=== PATIENT | female | born 1965 | race Caucasian/White ===

== ENCOUNTER 2016-12-02 10:34 | Emergency (ER) | payer MEDICAID ==
[~2016-12-02] VITALS: Ht 167.6 cm; Wt 100.0 kg
[~2016-12-02 10:34] MED LIST: ATOR10TA PO; NAPR-681 PO; POLY17PO3 PO; TRAM50TA3 PO
[2016-12-02 11:47] VITALS: BP 126/81
== END 2016-12-02 12:02 | disposition home or self-care (01) ==
LOC: ER 11:52
DX: B37.3 Candidiasis of vulva and vagina (principal); Z79.899 Other long term (current) drug therapy; Z90.49 Acquired absence of other specified parts of digestive tract; Z90.710 Acquired absence of both cervix and uterus
CPT/HCPCS: 99283; Z7610

== ENCOUNTER 2018-12-10 14:59 | Inpatient (IN) | payer MEDICAID ==
[~2018-12-10] VITALS: Ht 167.6 cm; Wt 99.3 kg
[2018-12-10 16:41] LABS: BASOPHILS % 0.9 % (0.0-2.0); HEMOGLOBIN. 15.3 g/dL (12.0-16.0); LYMPHOCYTES % 23.4 % (20.0-50.0); MEAN CORPUSCULAR HEMOGLOBIN 30.9 pg (28.0-32.0); MEAN CORPUSCULAR VOLUME 90.9 fL (81.0-99.0); MEAN PLATELET VOLUME 9.2 fl (7.4-10.4); MONOCYTES % 9.6 % (2.0-8.0); NEUTROPHILS % 65.1 % (40.0-76.0); PLATELET 199 x1000/uL (130-400); RED BLOOD CELL COUNT 4.96 mill/uL (4.2-5.4); RED CELL DISTRIBUTION WIDTH 14.1 % (11.6-14.6)
[2018-12-10 16:45] LABS: PROTHROMBIN TIME 10.4 sec (9.6-11.0)
[2018-12-10 16:48] LABS: CHLORIDE 104 mEq/L (98-107)
[2018-12-10 16:52] LABS: ETHANOL BLOOD < 10 mg/dL
[2018-12-10 16:55] LABS: LDL CHOLESTEROL 104 mg/dL (5-100)
[2018-12-10 17:59] LABS: CLARITY URINE CLEAR (CLEAR); COLOR URINE YELLOW (YELLOW); KETONES URINE TRACE (NEGATIVE); LEUKOCYTE ESTERASE URINE NEGATIVE (NEGATIVE); NITRITE URINE NEGATIVE (NEGATIVE); OCCULT BLOOD URINE NEGATIVE (NEGATIVE); PH URINE 5.5 (4.5-8.0); PROTEIN URINE NEGATIVE (NEGATIVE)
[2018-12-10 18:14] LABS: *AMPHETAMINES SCREEN URINE NEGATIVE (NEGATIVE); *BARBITURATES SCREEN URINE NEGATIVE (NEGATIVE); *BENZODIAZEPINES SCREEN URINE NEGATIVE (NEGATIVE); *COCAINE SCREEN URINE NEGATIVE (NEGATIVE); METHADONE URINE SCREEN NEGATIVE (NEGATIVE); OPIATES URINE SCREEN NEGATIVE (NEGATIVE)
[2018-12-10 18:15] LABS: CANNABINOID URINE SCREEN PRESUMTIVE POSITIVE (NEGATIVE); PHENCYCLIDINE URINE SCREEN NEGATIVE (NEGATIVE)
[2018-12-10] MEDS ORDERED: IOHEXOL-350 100 ML BOTTLE ONE (18:35)
[2018-12-11] VITALS (7 sets, daily range): BP systolic 100–144; BP diastolic 51–75
[2018-12-11] MEDS ORDERED: DEXTROSE 50% WATER 50ML SYRINGE IV PRN
[2018-12-11] MEDS ORDERED: CITA10TA16 MT (02:17)
[2018-12-11] MEDS ORDERED: HYDR-3782 GT (02:17)
[2018-12-11] MEDS ORDERED: METF-414 MT (02:17)
[2018-12-11] MEDS: METFORMIN HCL 500MG TABLET PO SCH ×2 (06:21→17:43)
[2018-12-11] MEDS: BLOOD SUGAR DIAGNOSTIC STRIP TEST SCH ×4 (06:28→21:00)
[2018-12-11] MEDS: INSULIN LISPRO 100 UNITS/ML SUBCUT SCH ×4 (06:28→21:00)
[2018-12-11] MEDS: ONDANSETRON HCL 4MG/2ML INJ IV PRN ×3 (06:55→22:16)
[2018-12-11] MEDS: CITALOPRAM HYDROBROMIDE 20MG TABLET PO SCH (09:00)
[2018-12-11] MEDS: ENOXAPARIN 30MG/0.3ML SYR SUBCUT SCH ×2 (09:00→21:00)
[2018-12-11] MEDS ORDERED: ASPIRIN 325MG EC TABLET PO SCH (09:00)
[2018-12-11 09:58] LABS: T4 FREE 1.2 ng/dL (0.76-1.46)
[2018-12-11] MEDS ORDERED: INSULIN GLARGINE UD 100 UNITS/ML SYR SUBCUT SCH (10:00)
[2018-12-11 11:18] LABS: FOLIC ACID (FOLATE) SERUM 15.7 ng/mL (>5.38)
[2018-12-11 12:26] LABS: HEPATITIS B SURFACE ANTIGEN NEGATIVE
[2018-12-11 12:54] LABS: HEPATITIS A AB IGM NEGATIVE (NEGATIVE)
[2018-12-11] MEDS: METOCLOPRAMIDE HCL 10MG/2ML VIAL IV SCH (16:54)
[2018-12-11] MEDS: ATORVASTATIN CALCIUM 40MG TABLET PO SCH (21:00)
[2018-12-11] MEDS: INSULIN GLARGINE UD 100 UNITS/ML SYR SUBCUT SCH (22:00)
[2018-12-12] VITALS: BP 134/85
[2018-12-12] MEDS: METOCLOPRAMIDE HCL 10MG/2ML VIAL IV SCH ×4 (01:40→18:21)
[2018-12-12] MEDS: DEXT 5%/0.45% NACL KCL 20MEQ/L 1,000 ML IV SCH ×2 (02:48→10:00)
[2018-12-12 04:00] VITALS: BP 127/68
[2018-12-12 06:04] LABS: BASOPHILS % 0.3 % (0.0-2.0); EOSINOPHILS % 0.1 % (0.0-5.0); HEMATOCRIT. 47.2 % (36.0-48.0); HEMOGLOBIN. 15.8 g/dL (12.0-16.0); MEAN CORPUSCULAR HEMOGLOBIN 30.6 pg (28.0-32.0); MEAN CORPUSCULAR VOLUME 91.5 fL (81.0-99.0); MEAN PLATELET VOLUME 10.3 fl (7.4-10.4); MONOCYTES % 5.3 % (2.0-8.0); NEUTROPHILS % 84.3 % (40.0-76.0); PLATELET 167 x1000/uL (130-400); RED BLOOD CELL COUNT 5.16 mill/uL (4.2-5.4); RED CELL DISTRIBUTION WIDTH 14.1 % (11.6-14.6)
[2018-12-12 06:21] LABS: CHLORIDE 101 mEq/L (98-107)
[2018-12-12] MEDS: METFORMIN HCL 500MG TABLET PO SCH ×2 (06:48→18:00)
[2018-12-12] MEDS: BLOOD SUGAR DIAGNOSTIC STRIP TEST SCH ×4 (06:59→20:57)
[2018-12-12] MEDS: INSULIN LISPRO 100 UNITS/ML SUBCUT SCH ×4 (07:11→21:10)
[2018-12-12 08:00] VITALS: BP 149/86
[2018-12-12] MEDS: CITALOPRAM HYDROBROMIDE 20MG TABLET PO SCH (10:02)
[2018-12-12] MEDS: CLOPIDOGREL 75MG TABLET PO SCH (10:02)
[2018-12-12] MEDS: INSULIN GLARGINE UD 100 UNITS/ML SYR SUBCUT SCH ×2 (10:03→21:11)
[2018-12-12] MEDS: ENOXAPARIN 30MG/0.3ML SYR SUBCUT SCH ×2 (10:04→20:57)
[2018-12-12 12:00] VITALS: BP 137/75
[2018-12-12] MEDS ORDERED: LIDOCAINE HCL 1% 20ML VIAL (Pyxis) INJ ONE (14:27)
[2018-12-12] MEDS ORDERED: SODIUM BICARBONATE 4% (2.4MEQ) 5ML VIAL IV ONE (14:27)
[2018-12-12] MEDS ORDERED: ONDANSETRON HCL 4MG/2ML INJ IM PRN (14:30)
[2018-12-12] MEDS: ONDANSETRON HCL 4MG/2ML INJ IV PRN (15:53)
[2018-12-12 16:00] VITALS: BP 119/76
[2018-12-12] MEDS: HYDROCODONE/ACETAMINOPHEN 5/325MG TABLET PO PRN ×2 (18:21→20:56)
[2018-12-12 20:00] VITALS: BP 152/79
[2018-12-12] MEDS: ATORVASTATIN CALCIUM 40MG TABLET PO SCH (20:50)
[2018-12-13] VITALS: BP 156/84
[2018-12-13] MEDS: METOCLOPRAMIDE HCL 10MG/2ML VIAL IV SCH ×4 (00:15→16:54)
[2018-12-13 04:00] VITALS: BP 152/90
[2018-12-13] MEDS: BLOOD SUGAR DIAGNOSTIC STRIP TEST SCH ×4 (05:40→21:42)
[2018-12-13] MEDS: METFORMIN HCL 500MG TABLET PO SCH ×2 (05:41→17:15)
[2018-12-13] MEDS: INSULIN LISPRO 100 UNITS/ML SUBCUT SCH ×6 (05:42→21:43)
[2018-12-13] MEDS: HYDROCODONE/ACETAMINOPHEN 5/325MG TABLET PO PRN (06:07)
[2018-12-13 06:08] LABS: BASOPHILS % 0.4 % (0.0-2.0); EOSINOPHILS % 0.1 % (0.0-5.0); LYMPHOCYTES % 16.9 % (20.0-50.0); MEAN CORPUSCULAR HEMOGLOBIN 30.1 pg (28.0-32.0); MEAN CORPUSCULAR VOLUME 90.1 fL (81.0-99.0); MEAN PLATELET VOLUME 9.5 fl (7.4-10.4); MONOCYTES % 8.6 % (2.0-8.0); PLATELET 221 x1000/uL (130-400); RED BLOOD CELL COUNT 4.99 mill/uL (4.2-5.4); RED CELL DISTRIBUTION WIDTH 13.9 % (11.6-14.6)
[2018-12-13 06:53] LABS: CHLORIDE 101 mEq/L (98-107)
[2018-12-13] MEDS: CITALOPRAM HYDROBROMIDE 20MG TABLET PO SCH (08:42)
[2018-12-13] MEDS: ONDANSETRON HCL 4MG/2ML INJ IV PRN ×2 (08:42→16:54)
[2018-12-13] MEDS: CLOPIDOGREL 75MG TABLET PO SCH (08:42)
[2018-12-13] MEDS: ENOXAPARIN 30MG/0.3ML SYR SUBCUT SCH ×2 (08:42→21:41)
[2018-12-13] MEDS: INSULIN GLARGINE UD 100 UNITS/ML SYR SUBCUT SCH ×2 (10:59→21:41)
[2018-12-13 12:00] VITALS: BP 173/78
[2018-12-13] MEDS ORDERED: PROCHLORPERAZINE 10MG/2ML VIAL IV PRN (13:00)
[2018-12-13] MEDS ORDERED: HYDRALAZINE 20MG/ML VIAL IV PRN (13:00)
[2018-12-13 14:18] LABS: CLARITY URINE CLEAR (CLEAR); COLOR URINE YELLOW (YELLOW); KETONES URINE NEGATIVE (NEGATIVE); LEUKOCYTE ESTERASE URINE TRACE (NEGATIVE); NITRITE URINE NEGATIVE (NEGATIVE); OCCULT BLOOD URINE TRACE (NEGATIVE); PH URINE 7.5 (4.5-8.0); PROTEIN URINE NEGATIVE (NEGATIVE); SPECIFIC GRAVITY URINE 1.014 (1.005-1.030)
[2018-12-13 16:00] VITALS: BP 157/75
[2018-12-13] MEDS ORDERED: SODIUM CHLORIDE 0.9% 1,000 ML IV SCH (16:15)
[2018-12-13] MEDS: ATORVASTATIN CALCIUM 40MG TABLET PO SCH (21:38)
[2018-12-14] MEDS: METOCLOPRAMIDE HCL 10MG/2ML VIAL IV SCH ×3 (01:41→11:53)
[2018-12-14] MEDS: BLOOD SUGAR DIAGNOSTIC STRIP TEST SCH ×2 (06:52→11:53)
[2018-12-14] MEDS: METFORMIN HCL 500MG TABLET PO SCH (06:52)
[2018-12-14] MEDS: INSULIN LISPRO 100 UNITS/ML SUBCUT SCH ×4 (06:54→12:28)
[2018-12-14 07:23] LABS: BASOPHILS % 0.5 % (0.0-2.0); EOSINOPHILS % 0.5 % (0.0-5.0); HEMATOCRIT. 46.7 % (36.0-48.0); LYMPHOCYTES % 15.8 % (20.0-50.0); MEAN CORPUSCULAR HEMOGLOBIN 30.6 pg (28.0-32.0); MEAN CORPUSCULAR VOLUME 89.7 fL (81.0-99.0); MEAN PLATELET VOLUME 8.8 fl (7.4-10.4); MONOCYTES % 9.5 % (2.0-8.0); NEUTROPHILS % 73.7 % (40.0-76.0); PLATELET 229 x1000/uL (130-400); RED BLOOD CELL COUNT 5.21 mill/uL (4.2-5.4); RED CELL DISTRIBUTION WIDTH 13.7 % (11.6-14.6)
[2018-12-14 07:49] LABS: CHLORIDE 102 mEq/L (98-107)
[2018-12-14 08:00] VITALS: BP 138/95
[2018-12-14] MEDS: CLOPIDOGREL 75MG TABLET PO SCH (09:17)
[2018-12-14] MEDS: ENOXAPARIN 30MG/0.3ML SYR SUBCUT SCH (09:17)
[2018-12-14] MEDS: CITALOPRAM HYDROBROMIDE 20MG TABLET PO SCH (09:17)
[2018-12-14] MEDS: INSULIN GLARGINE UD 100 UNITS/ML SYR SUBCUT SCH (10:13)
[2018-12-14 11:42] VITALS: BP 132/85
[2018-12-14 12:00] VITALS: BP 132/85
== END 2018-12-14 13:20 | disposition home or self-care (01) | DRG 47 ==
LOC: ER 14:59 → 5WST 18:26 → ENRESERV 21:07
PROVIDERS: ADMIT Internal Medicine; ATTEND Internal Medicine
PROC: 02HV33Z Insertion of Infusion Device into Superior Vena Cava, Percutaneous Approach (ICD-10-PCS; principal; 2018-12-12)
PROC: B5181ZA Fluoroscopy of Superior Vena Cava using Low Osmolar Contrast, Guidance (ICD-10-PCS; 2018-12-12)
PROC: B548ZZA Ultrasonography of Superior Vena Cava, Guidance (ICD-10-PCS; 2018-12-12)
DX: G45.9 Transient cerebral ischemic attack, unspecified (principal); C76.0 Malignant neoplasm of head, face and neck; B19.20 Unspecified viral hepatitis C without hepatic coma; E11.9 Type 2 diabetes mellitus without complications; E78.5 Hyperlipidemia, unspecified; F12.90 Cannabis use, unspecified, uncomplicated; I10 Essential (primary) hypertension; J44.9 Chronic obstructive pulmonary disease, unspecified; E66.9 Obesity, unspecified; E78.00 Pure hypercholesterolemia, unspecified; F17.210 Nicotine dependence, cigarettes, uncomplicated; Z90.49 Acquired absence of other specified parts of digestive tract; Z90.710 Acquired absence of both cervix and uterus; Z71.3 Dietary counseling and surveillance; Z68.35 Body mass index [BMI] 35.0-35.9, adult
CPT/HCPCS: 36415; 36569; 36573; 70496; 70498; 70544; 70553; 71045; 74018; 74176; 80048; 80061; 80305; 80320; 82607; 82746; 82962; 83036; 83721; 84439; 84443; 84481; 84484; 86705; 86709; 86803; 87340; 92610; 93005; 93306; 93970; 97116; 97162; 97166; 97530; 99285; A6261; C1725; J0360; J0780; J1650; J1815; J2405; J2765; J3490; J7030; Q9967; G0480